=== PATIENT | male | born 1965 | race Hispanic/Latino ===

== ENCOUNTER → 2024-04-27 | Outpatient (REF) | payer MEDICARE ==
[~2024-04-27] MED LIST: ALDACTONE100 MG PO; AMITIZA24 MCG PO; AMITRIPTYLINE100 MG PO; B-1100 M1 PO; CARNITOR330 MG PO; CLOTRIMAZOLE15 GM TOP; CONSTULOSE10 GM/15 M; DICLOFENAC SOD100 GM TP; DICYCLOMINE HCL20 MG PO; EPITOL200 MG PO; ESCITALOPRAM OXA5 MG; FAMOTIDINE20 MG PO; FEROSUL325 MG PO; FLOMAX0.4 MG PO; FLUOXETINE HCL20 MG PO; FOLIC ACID-VIT1 EACH PO; FOLIC ACID0.4 MG PO; FUROSEMIDE40 MG PO; HALOPERIDOL1 MG PO; HYOSCYAMINE0.125 MG PO; LACTULOSE20 GM/30 M PO; LINZESS145 MCG; NEURONTIN300 MG PO; NITROGLYCERIN0.4 MG SL; POLYETHYLENE GL17 GM PO; PROCTOSOL-HC28.35 GM PR; PROPRANOLOL HCL10 MG PO; PROTONIX20 MG PO; PROTONIX40 MG PO; PROZAC20 MG PO; SPIRONOLACTONE25 MG PO; TIZANIDINE HCL4 M1 PO; VITAMIN C1000 MG PO; XIFAXAN550 MG PO; ZINC SULFATE PO
== END ==
LOC: US 07:11
PROVIDERS: ATTEND Nurse Practitioner Family
DX: K74.60 Unspecified cirrhosis of liver (principal); N20.0 Calculus of kidney; R16.1 Splenomegaly, not elsewhere classified
CPT/HCPCS: 76700

== ENCOUNTER 2024-05-22 21:28 | Emergency (ER) | payer MEDICARE ==
[~2024-05-22] VITALS: Ht 165.1 cm; Wt 98.4 kg
[2024-05-22 22:09] VITALS: TEMP 98.8
[2024-05-22 22:35] LABS: BASOPHILS % 0.6 % (0.0-1.0); EOSINOPHILS # (AUTO) 0.3 (0.0-0.4); EOSINOPHILS % 4.2 % (0.0-6.0); HEMATOCRIT 28.4 % (38.2-49.6); HEMOGLOBIN 8.5 g/dL (14.0-18.0); LYMPHOCYTES # (AUTO) 0.8 (1.0-3.2); LYMPHOCYTES % 12.2 % (18.0-39.1); MEAN CORPUSCULAR HEMOGLOBIN 24.4 pg (28-32); MEAN CORPUSCULAR HGB CONC 29.9 g/dL (31-35); MEAN CORPUSCULAR VOLUME 81.4 fL (81-99); MONOCYTES # (AUTO) 0.6 (0.2-0.8); MONOCYTES % 9.1 % (4.4-11.3); NEUTROPHILS # (AUTO) 4.9 (2.1-6.9); NEUTROPHILS % 73.5 % (38.7-80.0); PLATELET COUNT 113 x10e3/uL (140-360); RED BLOOD COUNT 3.49 x10e6/uL (4.3-5.7); RED CELL DISTRIBUTION WIDTH 16.7 % (11.7-14.4)
[2024-05-22 22:40] LABS: INR 1.08; PROTHROMBIN TIME 14.6 seconds (11.9-14.5)
[2024-05-22 22:49] LABS: PARTIAL THROMBOPLASTIN TIME 29.9 seconds (23.8-35.5)
[2024-05-22 22:52] LABS: ALBUMIN 3.7 g/dL (3.5-5.0); ALBUMIN/GLOBULIN RATIO 0.9 (0.8-2.0); BILIRUBIN,TOTAL 0.6 mg/dL (0.2-1.2); CALCIUM 9.2 mg/dL (8.4-10.2); CREATININE, SERUM 0.97 mg/dL (0.72-1.25); TOTAL PROTEIN 7.6 g/dL (6.5-8.1)
[2024-05-23] MEDS ORDERED: ONDANSETRON HCL INJ 2MG/ML 2ML 2 MG/ML VIAL IV PRN (00:15)
[2024-05-23] MEDS ORDERED: SODIUM CHLORIDE 0.9% 1000ML 1,000 ML IV SCH (00:15)
[2024-05-23 01:00] VITALS: PULSE 70; RESP 14
[2024-05-23] MEDS: LACTULOSE SYRUP 20 GM/30 ML UDC RC ONE (01:33)
[2024-05-23 02:06] VITALS: BP 142/86; O2SAT 100
[2024-05-23 03:00] LABS: HYPOCHROMASIA SLIGHT; MICROCYTOSIS SLIGHT
[2024-05-23 03:01] LABS: ANISOCYTOSIS SLIGHT; ELLIPTOCYTE, RBC SLIGHT; OVALOCYTES FEW; POIKILOCYTOSIS SLIGHT
[2024-05-23 03:02] LABS: PLATELET ESTIMATE ADEQUATE; PLATELET MORPHOLOGY COMMENT NORMAL; RBC MORPHOLOGY COMMENT ABNORMAL
== END 2024-05-23 00:50 | disposition other institution (70) ==
LOC: ER 22:15 → ERHOLD 05-23 00:05 → UNDOADMIN 05-23 00:05 → ER 05-23 00:50
DX: R41.82 Altered mental status, unspecified (principal); K76.82 Hepatic encephalopathy; S06.5X0A Traumatic subdural hemorrhage without loss of consciousness, initial encounter; I10 Essential (primary) hypertension; K76.9 Liver disease, unspecified; R94.31 Abnormal electrocardiogram [ECG] [EKG]; Z85.46 Personal history of malignant neoplasm of prostate; Z86.69 Personal history of other diseases of the nervous system and sense organs
CPT/HCPCS: 36415; 70450; 80053; 82140; 85025; 85610; 85730; 93005; 94760; 99284

== ENCOUNTER 2024-09-17 10:04 | Emergency (ER) | payer MEDICARE ==
[~2024-09-17] VITALS: Ht 162.6 cm; Wt 98.4 kg
[2024-09-17 10:15] VITALS: PULSE 50; RESP 18; TEMP 98.1
[2024-09-17 11:17] LABS: BASOPHILS % 0.9 % (0.0-1.0); EOSINOPHILS # (AUTO) 0.3 (0.0-0.4); EOSINOPHILS % 7.3 % (0.0-6.0); HEMATOCRIT 33.1 % (38.2-49.6); HEMOGLOBIN 10.3 g/dL (14.0-18.0); LYMPHOCYTES # (AUTO) 0.8 (1.0-3.2); LYMPHOCYTES % 19.2 % (18.0-39.1); MEAN CORPUSCULAR HEMOGLOBIN 27.2 pg (28-32); MEAN CORPUSCULAR HGB CONC 31.1 g/dL (31-35); MEAN CORPUSCULAR VOLUME 87.3 fL (81-99); MONOCYTES # (AUTO) 0.3 (0.2-0.8); MONOCYTES % 7.3 % (4.4-11.3); NEUTROPHILS # (AUTO) 2.8 (2.1-6.9); NEUTROPHILS % 64.8 % (38.7-80.0); PLATELET COUNT 102 x10e3/uL (140-360); RED BLOOD COUNT 3.79 x10e6/uL (4.3-5.7); RED CELL DISTRIBUTION WIDTH 19.4 % (11.7-14.4); WHITE BLOOD COUNT 4.27 x10e3/uL (4.8-10.8)
[2024-09-17 11:37] LABS: INR 1.1; PROTHROMBIN TIME 14.9 seconds (11.9-14.5)
[2024-09-17 11:47] LABS: ALBUMIN 3.7 g/dL (3.5-5.0); ALBUMIN/GLOBULIN RATIO 1.1 (0.8-2.0); ANION GAP 14.1 mmol/L (8-16); BILIRUBIN,TOTAL 0.7 mg/dL (0.2-1.2); CREATININE, SERUM 0.87 mg/dL (0.72-1.25); POTASSIUM 4.1 mmol/L (3.5-5.1)
[2024-09-17 13:10] LABS: BILIRUBIN,URINE NEGATIVE (NEGATIVE); CLARITY,URINE CLEAR (CLEAR); COLOR,URINE YELLOW (YELLOW); GLUCOSE, URINE NEGATIVE (NEGATIVE); KETONES,URINE NEGATIVE (NEGATIVE); LEUKOCYTE ESTERASE ,URINE TRACE (NEGATIVE); NITRITE,URINE NEGATIVE (NEGATIVE); PH,URINE 7 (5 - 7); PROTEIN,URINE DIPSTICK NEGATIVE (NEGATIVE); URINE UROBILINOGEN 0.2 mg/dL (0.2 - 1)
[2024-09-17 13:23] LABS: BACTERIA,URINE FEW /HPF; EPITHELIAL CELLS,URINE RARE /LPF; WBC,URINE (MAN) 0-5 /HPF (0-5)
[2024-09-17 14:28] VITALS: BP 124/77; PULSE 53; RESP 18; TEMP 97.8; O2SAT 100
== END 2024-09-17 14:15 | disposition home or self-care (01) ==
LOC: ER 11:11
DX: R42 Dizziness and giddiness (principal); R51.9 Headache, unspecified; I10 Essential (primary) hypertension; K76.9 Liver disease, unspecified; R94.31 Abnormal electrocardiogram [ECG] [EKG]; Z85.46 Personal history of malignant neoplasm of prostate; Z86.79 Personal history of other diseases of the circulatory system
CPT/HCPCS: 36415; 70450; 80053; 81001; 82140; 85025; 85610; 85730; 93005; 99284

== ENCOUNTER → 2024-10-26 | Outpatient (REF) | payer MEDICARE | LOC: US 08:39 | PROVIDERS: ATTEND Nurse Practitioner Family | DX: K74.60 Unspecified cirrhosis of liver (principal); R16.1 Splenomegaly, not elsewhere classified | CPT/HCPCS: 76700 ==

== ENCOUNTER → 2024-10-26 | Outpatient (REF) | payer MEDICARE | LOC: US 09:02 | PROVIDERS: ATTEND Internal Medicine | DX: N28.9 Disorder of kidney and ureter, unspecified (principal) | CPT/HCPCS: 76770; 76857 ==

== ENCOUNTER → 2025-02-15 | Outpatient (REF) | payer MEDICARE | LOC: US 07:30 | PROVIDERS: ATTEND Nurse Practitioner Family | DX: K74.60 Unspecified cirrhosis of liver (principal); R10.2 Pelvic and perineal pain; R10.31 Right lower quadrant pain | CPT/HCPCS: 76700; 76856 ==